=== PATIENT | male | born 1970 | race Caucasian/White ===

== ENCOUNTER → 2024-09-28 16:48 | Outpatient (REF) | payer BC, SELFPAY | LOC: RAD 16:48 | PROVIDERS: ATTENDING PHYSICIAN Specialist; FAMILY PHYSICIAN Internal Medicine | DX: N20.0 Calculus of kidney (principal) | CPT/HCPCS: 74178; Q9967 ==

== ENCOUNTER 2024-10-11 06:16 | Day surgery (SDC) | payer BC, SELFPAY ==
[2024-10-06 14:03] VITALS: BMI 26.1
[2024-10-11 09:06] VITALS: BP 132/91
[2024-10-11 09:24] VITALS: BMI 26.1
[2024-10-11] MEDS: NORMOSOL-R/PLASMALYTE-A 1000 IV (09:25)
[2024-10-11 11:15] VITALS: BP 130/82; BP 132/91
[2024-10-11 11:30] VITALS: BP 128/82
[2024-10-11] MEDS: Pyridium 200 MG PO (11:39)
[2024-10-11 11:45] VITALS: BP 127/82
[2024-10-11 12:00] VITALS: BP 132/82
[2024-10-11 12:30] VITALS: BP 128/71
== END 2024-10-11 12:52 | disposition home or self-care (01) ==
LOC: SDS 06:16
PROVIDERS: ATTENDING PHYSICIAN Specialist; FAMILY PHYSICIAN Internal Medicine
DX: N20.2 Calculus of kidney with calculus of ureter (principal); R31.0 Gross hematuria
CPT/HCPCS: 52356; 36415; 74018; 76000; 93005; C2617